=== PATIENT | female | born 1975 | race Caucasian/White ===

== ENCOUNTER 2016-11-06 11:46 | Emergency (ER) | payer SELFPAY ==
--- NOTE | 2016-11-06 14:02 | ERNOTE ---
ENT HPI Date of Service: 11/06/16 Presenting Symptoms: dental pain Time Seen by Provider: 11/06/16 13:10 Source: patient Exam Limitations: no limitations - Immun/Allergies/Home Medications Immunizations: IMMUNIZATION HX Immunizations Up to Date Yes History of Influenza Vaccine No Hx Pneumococcal Vaccination No Allergies/Adverse Reactions: Allergies Allergy/AdvReac Type Severity Reaction Status Date / Time codeine AdvReac Mild Vomiting Verified 11/06/16 11:57 Home Medications: HOME MEDICATIONS HYDROcodone/ACETAMINOPHEN [[place] 5-325] 1 tab PO Q6H PRN #12 tab 11/06/16 [Last Taken Unknown] Penicillin V Potassium [Pen-Vee K] 500 mg PO QID #40 tab 11/06/16 [Last Taken Unknown] - History of Present Illness Narrative: Patient presents to the ED with dental pain. She relates 2 weeks ago she bit down and cracked her left posterior upper molar. She has been having pain there but had a small branch also hit the area and increased pain with that. Pain only left upper molar. Air over the tooth hurts it and there is pain when something touches the tooth. No jaw pain. No trouble breathing or swallowing. Has not seen anyone else for this. Called the dentist today and was told to go to ER for pain medicine and antibiotics. She relates she has taken hydrocodone in the past with no reaction. No fever. Pain can be severe in the tooth. Severity: Present: severe ENT Location: Present: dental Prearrival Treatment: Absent: prescription meds Modifying Factors - Improves: Reports: nothing Modifying Factors - Worsens: Reports: cold Associated Symptoms - ENT: Reports: tooth pain. Denies: fever, cough, voice change, sore throat, drooling, facial pain/swelling Prior Treament: Denies: recently seen Review of Systems - Review of Systems Constitutional: Absent: fever EYE: Present: no symptoms reported ENT: Present: See HPI Respiratory: Absent: shortness of breath Gastrointestinal/Abdominal: Absent: vomiting - Patient's Past Medical History Patient History - Medical: No pertinent hx Patient History - Cardiac/Respiratory: No pertinent hx Patient History - Cancer: Cervical, Ovarian Patient History - Surgical Procedures: Patient History - Other: None LMP (females 10-50): last week - Social History Living Situations: home Psych History: No pertinent hx Smoking Status: Current every day smoker Alcohol Use: rarely Drug Use: none - Immunizations Immunizations Up to Date: Yes Hx Pneumococcal Vaccination: No History of Influenza Vaccine: No Physical Exam - Physical Exam General Appearance: Present: alert, no apparent distress Eye Exam: Normal inspection: bilateral, PERRL: bilateral Ears, Nose, Throat: Present: normal pharynx, other - She has a fractured l;eft posterior maxillary molar - percussion of this completely reproduces her pain. No abscess visualized. There is no jaw or facial bone tenderness or swelling. No ANUG or Zackary's angina. Clinically this tooth is the etiology of her pain.. 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 Vital Signs: Vital Signs 11/06/16 11:52 Temperature 36.3 C L Pulse Rate 87 Respiratory 16 Rate Blood Pressure 151/111 O2 Sat by Pulse 99 Oximetry - Progress/Reassessment Chief Complaint: Dental Problem Progress Note-Subjective: 11/06/16 13:58 No ANUG or Zackary's angina. Clinically dental etiology of Sx. She states she had a branch also hit her tooth area. No facial bone or jaw tendenress with this. She said it was a very light hit. I offered her max/fac CT but she declines this, understands risks and benefits. I discussed warning signs and reasons to return as well as the need for close f/u. Departure Clinical Impression: Pain, dental - Departure Disposition: Home self-care Instructions: Tooth Injuries, [id number] Additional Instructions: Medications as directed. No driving with pain medications. See a dentist in the next 1-2 days. Return for trouble breathing or swallowing or if your condition worsens or changes in any way. Referrals: Mehran Samuel MD [Primary Care Provider] - Prescriptions: HYDROcodone/ACETAMINOPHEN [[place] 5-325] 1 tab PO Q6H PRN #12 tab PRN Reason: Pain Penicillin V Potassium [Pen-Vee K] 500 mg PO QID #40 tab
[2016-11-06 14:08] VITALS: BP 172/112
== END 2016-11-06 14:07 | disposition home or self-care (01) ==
LOC: ER 11:46
DX: K08.89 Other specified disorders of teeth and supporting structures (principal); F17.210 Nicotine dependence, cigarettes, uncomplicated

== ENCOUNTER → 2016-11-30 | Emergency (ER) | payer SELFPAY ==
[2016-11-30 10:59] VITALS: BP 156/70
--- NOTE | 2016-11-30 11:26 | ERNOTE ---
Lower Extremity HPI - Narrative Date of Service: 11/30/16 - General Lower Extremities Pain: ankle: left - Pain and Swelling Time Seen by Provider: 11/30/16 11:00 Source: patient Exam Limitations: no limitations - Immun/Allergies/Home Medications Immunizations: IMMUNIZATION HX Immunizations Up to Date Yes History of Influenza Vaccine No Hx Pneumococcal Vaccination No Allergies/Adverse Reactions: Allergies Allergy/AdvReac Type Severity Reaction Status Date / Time codeine AdvReac Mild Vomiting Verified 11/30/16 10:59 Home Medications: HOME MEDICATIONS Penicillin V Potassium [Pen-Vee K] 500 mg PO QID #40 tab 11/06/16 [Last Taken Unknown] - History of Present Illness Narrative: Patient twisted her L ankle yesterday and has pain and swelling. Occurred: yesterday Location of Incident: home Method of Injury: Reports: twisted Reason for Fall: Reports: other - none Loss of Consciousness: Reports: no loss of consciousness Modifying Factors - (Improves): Reports: rest Modifying Factors - (Worsens): Reports: movement Associated Symptoms: Denies: snapping, popping sensation, dizzy/light headedness , headache, weakness, sensory loss, chest pain, vomiting/diarrhea, bowel/ bladder problems, none, other injuries Other Injuries: Reports: none Subsequent Symptoms: Denies: sensory loss Prior Treament: Denies: recently seen Review of Systems - Review of Systems Constitutional: Present: no symptoms reported EYE: Present: no symptoms reported ENT: Present: no symptoms reported Respiratory: Present: no symptoms reported Gastrointestinal/Abdominal: Present: no symptoms reported Genitourinary: Present: no symptoms reported Musculoskeletal: Present: joint pain - L ankle pain, joint swelling Skin: Present: other - L ankle hematoma Neurological: Present: no symptoms reported Endocrine: Present: no symptoms reported Hematologic/Lymphatic: Present: no symptoms reported Psych: Present: no symptoms reported All Other Systems: All systems neg except as marked - Patient's Past Medical History Patient History - Medical: No pertinent hx Patient History - Cardiac/Respiratory: No pertinent hx Patient History - Cancer: Cervical, Ovarian Patient History - Surgical Procedures: Patient History - Other: None - Social History Living Situations: home Psych History: No pertinent hx Alcohol Use: rarely Drug Use: none - Immunizations Immunizations Up to Date: Yes Hx Pneumococcal Vaccination: No History of Influenza Vaccine: No Physical Exam - Physical Exam General Appearance: Present: wd/wn, alert, no apparent distress Eye Exam: Normal inspection: bilateral Ears, Nose, Throat: Present: normal ENT inspection, normal pharynx Neck: Present: normal inspection Respiratory: Present: no respiratory distress, no accessory muscle use Cardiovascular/Chest: Present: normal peripheral pulses Gastrointestinal/Abdominal: Absent: tenderness Back Exam: Present: normal inspection Extremity Exam: Present: other - On L ankle there is mild swelling. Patient has some pain on ROM. There is no open wounds. A moderate size hematoma is noticed. Patient with good sensation and a capillary refill < 2sec. Neurological Exam: Present: alert, oriented, normal mood/affect, no motor/ sensory deficits Skin Exam: Present: warm/dry Lymphatic Exam: Present: no adenopathy ED Progress - Vital Signs Patient's Vital Signs:: I have reviewed the patient's vital signs. Vital Signs: Vital Signs 11/30/16 10:55 Temperature 36.7 C Pulse Rate 93 Respiratory 12 Rate Blood Pressure 156/70 O2 Sat by Pulse 100 Oximetry - X-Ray X-Ray #1 X-Ray: ankle - L - No Fx seen Interpretation: Interp. by me, Reviewed by me - Progress/Reassessment Chief Complaint: Ankle Injury/ Pain Progress:: Improved - Transfer of Care Expected Disposition: Discharge Departure Clinical Impression: Ankle sprain Qualifiers: Encounter type: initial encounter Involved ligament of ankle: unspecified ligament Laterality: left Qualified Code(s): S93.402A - Sprain of unspecified ligament of left ankle, initial encounter - Departure Condition: Stable Instructions: How to Use a Stirrup Ankle Brace, [id number], Ankle Sprain Referrals: Mehran Samuel MD [Primary Care Provider] -
== END ==
LOC: ER 10:52
DX: S93.402A Sprain of unspecified ligament of left ankle, initial encounter (principal); X58.XXXA Exposure to other specified factors, initial encounter; Z85.41 Personal history of malignant neoplasm of cervix uteri; Z85.43 Personal history of malignant neoplasm of ovary

== ENCOUNTER 2017-11-29 19:56 | Emergency (ER) | payer BC ==
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
[2017-11-29 21:45] VITALS: BP 147/89
== END 2017-11-29 21:44 | disposition home or self-care (01) ==
LOC: ER 19:56
DX: F17.200 Nicotine dependence, unspecified, uncomplicated; S43.492A Other sprain of left shoulder joint, initial encounter; Z85.43 Personal history of malignant neoplasm of ovary; V89.2XXA Person injured in unspecified motor-vehicle accident, traffic, initial encounter; S53.442A Ulnar collateral ligament sprain of left elbow, initial encounter